=== PATIENT | female | born 1990 | race African-American/Black ===

== ENCOUNTER 2016-09-17 16:26 | Outpatient (CLI) | payer OTHER, MEDICAID ==
[~2016-09-17] VITALS: Ht 162.6 cm; Wt 94.5 kg
[~2016-09-17 16:26] MED LIST: ABILIFY5 MG PO; ALBUTEROL0.09 MG/A1 IH; ATIVAN; CIPRO 500MG TA500 MG PO; FLEXERIL; GENTAMICIN EYE D5 ML OP; K-DUR20 MEQ PO; LORTAB 5/500 501 TAB PO; PEPCID 20MG TAB20 MG PO; PHENERGAN 25 TA25 MG PO; PROZAC 10MG10 MG PO; ROZEREM 8MG TABL8 MG PO; TRAZODONE150 MG PO; VENTOLIN0.09 MG IH; ZITHROMAX Z PA250 MG PO; ZOFRAN 4MG T4 MG/TAB PO; [UNRECOGNIZED DRUG - OTHER]
[2016-09-17 16:45] VITALS: BP 119/67; PULSE 86; TEMP 98.1
[2016-09-17] MEDS ORDERED: PRENATAL1 TA7 PO (16:54)
[2016-09-17 17:30] VITALS: BP 119/72; PULSE 85
== END 2016-09-17 17:50 | disposition home or self-care (01) ==
LOC: LDRO 16:26
DX: Z03.79 Encounter for other suspected maternal and fetal conditions ruled out (principal); Z3A.39 39 weeks gestation of pregnancy; W18.30XA Fall on same level, unspecified, initial encounter; F17.210 Nicotine dependence, cigarettes, uncomplicated

== ENCOUNTER 2017-09-21 10:31 | Emergency (ER) | payer SELFPAY ==
[~2017-09-21] VITALS: Ht 162.6 cm; Wt 87.5 kg
[~2017-09-21 10:31] MED LIST changes: +PRENATAL1 TA7 PO
[2017-09-21 10:54] VITALS: BP 137/90; TEMP 98.4
[2017-09-21 11:16] LABS: COLLECTION METHOD CLEAN CATCH
[2017-09-21 11:31] LABS: MUCOUS Present /lpf; PH 6 (5-8); URINE APPEARANCE Clear; URINE BACTERIA None Seen /hpf; URINE BILIRUBIN Negative (NEGATIVE); URINE BLOOD Negative (NEGATIVE); URINE COLOR Yellow; URINE GLUCOSE Negative (NEGATIVE); URINE KETONE Negative (NEGATIVE); URINE LEUKOCYTE ESTERASE Negative (NEGATIVE); URINE NITRATE Negative (NEGATIVE); URINE PROTEIN(semi-quant) 1+ (NEGATIVE)
[2017-09-21 11:39] LABS: BASO % 0.2 % (0.0-2.0); EOS # 0.1 (0.0-0.7); EOS % 1.2 % (0-4.0); GRAN # 7.2 (1.4-6.5); GRAN % 69.3 % (42.2-75.2); HEMATOCRIT 37.8 % (37.0-47.0); HEMOGLOBIN 12.5 g/dl (12.5-16.0); LYMPH # 2.4 (1.2-3.4); LYMPH % 23.3 % (20.0-51.0); MEAN CELL VOLUME 87 fl (80.0-100.0); MEAN CORPUSCULAR HEMOGLOBIN 29 pg (27.0-31.0); MEAN CORPUSCULAR HGB CONC 33 g/dl (33.0-37.0); MEAN PLATELET VOLUME 9.1 fl (7.4-10.4); MONO # 0.6 (0.1-0.6); MONO % 5.7 % (1.7-9.3); PLATELET COUNT 348 K/mm3 (130-400); RED BLOOD COUNT 4.36 M/mm3 (4.10-5.30); REDCELL DISTRIBUTION WIDTH-CV 15.5 % (11.5-14.5)
[2017-09-21 11:43] LABS: ALANINE AMINOTRANSFERASE 31 U/L (9-52); ALBUMIN 3.9 gm/dL (3.5-5.0); ALKALINE PHOSPHATASE 95 U/L (50-136); ANION GAP 10 mmol/L (7-16); AST,SGOT 26 U/L (15-37); BILIRUBIN,TOTAL 0.5 mg/dL (0.0-1.0); BLOOD UREA NITROGEN 10 mg/dL (7-17); CALCIUM 9.8 mg/dL (8.4-10.2); CARBON DIOXIDE 26 mmol/L (22-30); CHLORIDE 105 mmol/L (98-107); CREATININE, serum 0.81 mg/dL (0.52-1.25); GLUCOSE 109 mg/dL (74-106); POTASSIUM 4.1 mmol/L (3.4-5.0); SODIUM 141 mmol/L (137-145); TOTAL PROTEIN 8.3 gm/dL (6.4-8.2)
[2017-09-21 12:00] LABS: HCG,QUANTITATIVE < 2 mIU/mL (0-5)
[2017-09-21 13:05] VITALS: PULSE 77
== END 2017-09-21 13:05 | disposition home or self-care (01) ==
LOC: COL.ER 10:31
PROVIDERS: Emergency Medicine
DX: R10.2 Pelvic and perineal pain (principal)
CPT/HCPCS: J0696

== ENCOUNTER 2018-01-23 09:50 | Emergency (ER) | payer SELFPAY ==
[~2018-01-23] VITALS: Ht 162.6 cm; Wt 81.8 kg
[2018-01-23 09:57] VITALS: TEMP 97.8
[2018-01-23 10:26] LABS: BASO % 0.2 % (0.0-2.0); EOS % 0.2 % (0-4.0); GRAN # 9.2 (1.4-6.5); GRAN % 74.9 % (42.2-75.2); HEMATOCRIT 41.5 % (37.0-47.0); LYMPH # 2.4 (1.2-3.4); LYMPH % 19.5 % (20.0-51.0); MEAN CELL VOLUME 85 fl (80.0-100.0); MEAN CORPUSCULAR HEMOGLOBIN 29 pg (27.0-31.0); MEAN CORPUSCULAR HGB CONC 34 g/dl (33.0-37.0); MEAN PLATELET VOLUME 9.2 fl (7.4-10.4); MONO # 0.6 (0.1-0.6); MONO % 4.9 % (1.7-9.3); PLATELET COUNT 330 K/mm3 (130-400); RED BLOOD COUNT 4.89 M/mm3 (4.10-5.30); REDCELL DISTRIBUTION WIDTH-CV 14.9 % (11.5-14.5)
[2018-01-23 10:38] LABS: COLLECTION METHOD CLEAN CATCH
[2018-01-23 10:38] LABS: BILIRUBIN,TOTAL 1.4 mg/dL (0.0-1.0); C-REACTIVE PROTEIN 0.7 mg/dL (0.0-0.9); CREATININE, serum 0.78 mg/dL (0.52-1.25); POTASSIUM 3.4 mmol/L (3.4-5.0); TOTAL PROTEIN 7.5 gm/dL (6.4-8.2)
[2018-01-23 11:11] LABS: AMORPHOUS CRYSTAL Present /uL; MUCOUS Present /lpf; PH 7 (5-8); SQUAMOUS EPITHELIAL None Seen /hpf; URINE APPEARANCE Cloudy; URINE BACTERIA None Seen /hpf; URINE BILIRUBIN Negative (NEGATIVE); URINE BLOOD Negative (NEGATIVE); URINE COLOR Yellow; URINE GLUCOSE Negative (NEGATIVE); URINE KETONE 2+ (NEGATIVE); URINE LEUKOCYTE ESTERASE Negative (NEGATIVE); URINE NITRATE Negative (NEGATIVE); URINE PROTEIN(semi-quant) 1+ (NEGATIVE); URINE UROBILINOGEN >=4.0 mg/dL (NEGATIVE)
[2018-01-23] MEDS ORDERED: NORCO 325 MG-51 TAB PO (13:15)
[2018-01-23] MEDS ORDERED: ZOFRAN ODT4 MG PO (13:15)
[2018-01-23 13:37] VITALS: BP 120/88; PULSE 74
== END 2018-01-23 13:38 | disposition home or self-care (01) ==
LOC: COL.ER 09:50
PROVIDERS: Nurse Practitioner
DX: R10.13 Epigastric pain (principal); F17.210 Nicotine dependence, cigarettes, uncomplicated; F12.90 Cannabis use, unspecified, uncomplicated
CPT/HCPCS: J2270; J2405; J7030; Q9967

== ENCOUNTER 2018-01-31 02:48 | Emergency (ER) | payer SELFPAY ==
[~2018-01-31] VITALS: Ht 162.6 cm; Wt 77.3 kg
[~2018-01-31 02:48] MED LIST changes: +NORCO 325 MG-51 TAB PO; +ZOFRAN ODT4 MG PO
[2018-01-31 02:52] VITALS: BP 136/91; TEMP 98.6
[2018-01-31] MEDS ORDERED: CEPHALEXIN500 M1 PO (05:19)
[2018-01-31 05:37] VITALS: PULSE 87
== END 2018-01-31 05:37 | disposition home or self-care (01) ==
LOC: COL.ER 02:48
DX: S61.210A Laceration without foreign body of right index finger without damage to nail, initial encounter (principal); Z23 Encounter for immunization; W26.8XXA Contact with other sharp object(s), not elsewhere classified, initial encounter; Y92.410 Unspecified street and highway as the place of occurrence of the external cause

== ENCOUNTER 2018-05-04 14:41 | Emergency (ER) | payer SELFPAY ==
[~2018-05-04] VITALS: Ht 162.6 cm; Wt 68.2 kg
[~2018-05-04 14:41] MED LIST changes: +CEPHALEXIN500 M1 PO
[2018-05-04 14:49] VITALS: BP 138/92; TEMP 98.2
[2018-05-04 16:08] LABS: COLLECTION METHOD CLEAN CATCH
[2018-05-04 16:17] LABS: MUCOUS Present /lpf; PH 6 (5-8); URINE APPEARANCE Clear; URINE BACTERIA None Seen /hpf; URINE BILIRUBIN Negative (NEGATIVE); URINE BLOOD 3+ (NEGATIVE); URINE COLOR Yellow; URINE GLUCOSE Negative (NEGATIVE); URINE KETONE 2+ (NEGATIVE); URINE LEUKOCYTE ESTERASE Negative (NEGATIVE); URINE NITRATE Negative (NEGATIVE); URINE PROTEIN(semi-quant) 2+ (NEGATIVE)
[2018-05-04 16:49] LABS: BASO % 0.2 % (0.0-2.0); EOS % 0.2 % (0-4.0); GRAN # 8.7 (1.4-6.5); GRAN % 79.8 % (42.2-75.2); HEMATOCRIT 41.7 % (37.0-47.0); HEMOGLOBIN 14.1 g/dl (12.5-16.0); LYMPH # 1.4 (1.2-3.4); LYMPH % 13.1 % (20.0-51.0); MEAN CELL VOLUME 86 fl (80.0-100.0); MEAN CORPUSCULAR HEMOGLOBIN 29 pg (27.0-31.0); MEAN CORPUSCULAR HGB CONC 34 g/dl (33.0-37.0); MONO # 0.7 (0.1-0.6); MONO % 6.4 % (1.7-9.3); PLATELET COUNT 337 K/mm3 (130-400); RED BLOOD COUNT 4.86 M/mm3 (4.10-5.30); REDCELL DISTRIBUTION WIDTH-CV 15.3 % (11.5-14.5)
[2018-05-04 16:53] LABS: ALANINE AMINOTRANSFERASE 16 U/L (9-52); ALBUMIN 4.4 gm/dL (3.5-5.0); ALKALINE PHOSPHATASE 73 U/L (50-136); ANION GAP 8 mmol/L (7-16); AST,SGOT 33 U/L (15-37); BILIRUBIN,TOTAL 0.8 mg/dL (0.0-1.0); BLOOD UREA NITROGEN 10 mg/dL (7-17); CALCIUM 9.5 mg/dL (8.4-10.2); CARBON DIOXIDE 31 mmol/L (22-30); CHLORIDE 99 mmol/L (98-107); GLUCOSE 96 mg/dL (74-106); POTASSIUM 3.3 mmol/L (3.4-5.0); SODIUM 138 mmol/L (137-145); TOTAL PROTEIN 8.1 gm/dL (6.4-8.2)
[2018-05-04 17:14] LABS: C-REACTIVE PROTEIN < 0.5 mg/dL (0.0-0.9); LIPASE 41 U/L (23-300)
[2018-05-04] MEDS ORDERED: ZOFRAN ODT4 MG PO (17:25)
[2018-05-04 18:15] VITALS: PULSE 80
== END 2018-05-04 18:15 | disposition home or self-care (01) ==
LOC: COL.ER 14:41
PROVIDERS: Physician Assistant
DX: R11.10 Vomiting, unspecified (principal)
CPT/HCPCS: J2405; J7030

== ENCOUNTER 2018-10-07 17:25 | Emergency (ER) | payer SELFPAY ==
[~2018-10-07] VITALS: Ht 162.6 cm; Wt 59.1 kg
[2018-10-07 17:29] VITALS: BP 157/108; TEMP 97.4
[2018-10-07 17:57] LABS: COLLECTION METHOD CLEAN CATCH
[2018-10-07 18:10] LABS: MUCOUS Present /lpf; PH 7 (5-8); SQUAMOUS EPITHELIAL 0-2 /hpf; URINE APPEARANCE Hazy; URINE BACTERIA None Seen /hpf; URINE BILIRUBIN Negative (NEGATIVE); URINE BLOOD Negative (NEGATIVE); URINE COLOR Yellow; URINE GLUCOSE Negative (NEGATIVE); URINE KETONE Negative (NEGATIVE); URINE LEUKOCYTE ESTERASE Negative (NEGATIVE); URINE NITRATE Negative (NEGATIVE); URINE PROTEIN(semi-quant) Negative (NEGATIVE); URINE RBC 0-2 /hpf; URINE UROBILINOGEN Negative (NEGATIVE)
[2018-10-07 19:39] LABS: BASO % 0.2 % (0.0-2.0); EOS # 0.1 (0.0-0.7); EOS % 0.7 % (0-4.0); GRAN # 6.4 (1.4-6.5); GRAN % 63.2 % (42.2-75.2); HEMATOCRIT 42.8 % (37.0-47.0); HEMOGLOBIN 14.1 g/dl (12.5-16.0); LYMPH # 2.9 (1.2-3.4); LYMPH % 29.2 % (20.0-51.0); MEAN CELL VOLUME 88 fl (80.0-100.0); MEAN CORPUSCULAR HEMOGLOBIN 29 pg (27.0-31.0); MEAN CORPUSCULAR HGB CONC 33 g/dl (33.0-37.0); MEAN PLATELET VOLUME 9.8 fl (7.4-10.4); MONO # 0.7 (0.1-0.6); MONO % 6.5 % (1.7-9.3); PLATELET COUNT 351 K/mm3 (130-400); RED BLOOD COUNT 4.85 M/mm3 (4.10-5.30); REDCELL DISTRIBUTION WIDTH-CV 13.8 % (11.5-14.5)
[2018-10-07 19:43] LABS: ALBUMIN 4.2 gm/dL (3.5-5.0); BILIRUBIN,TOTAL 0.8 mg/dL (0.0-1.0); CALCIUM 9.8 mg/dL (8.4-10.2); CREATININE, serum 0.89 (0.52-1.25); POTASSIUM 4.3 mmol/L (3.4-5.0); TOTAL PROTEIN 8.2 gm/dL (6.4-8.2)
[2018-10-07] MEDS ORDERED: PHENERGAN 25 TA25 MG PO (20:07)
[2018-10-07] MEDS ORDERED: NEXIUM 20MG20 MG PO (20:07)
[2018-10-07 22:41] VITALS: PULSE 98
== END 2018-10-07 20:40 | disposition home or self-care (01) ==
LOC: COL.ER 17:25
PROVIDERS: Emergency Medicine
DX: K27.9 Peptic ulcer, site unspecified, unspecified as acute or chronic, without hemorrhage or perforation (principal)
CPT/HCPCS: C9113; J0780; J7030

== ENCOUNTER 2018-10-16 15:55 | Emergency (ER) | payer SELFPAY ==
[~2018-10-16] VITALS: Ht 162.6 cm; Wt 68.2 kg
[~2018-10-16 15:55] MED LIST changes: +NEXIUM 20MG20 MG PO
[2018-10-16 16:05] VITALS: BP 144/100; TEMP 97
[2018-10-16 17:05] LABS: BASO % 0.2 % (0.0-2.0); EOS # 0.1 (0.0-0.7); GRAN # 6.3 (1.4-6.5); HEMATOCRIT 37.2 % (37.0-47.0); HEMOGLOBIN 12.2 g/dl (12.5-16.0); LYMPH # 2.7 (1.2-3.4); LYMPH % 27.8 % (20.0-51.0); MEAN CELL VOLUME 89 fl (80.0-100.0); MEAN CORPUSCULAR HEMOGLOBIN 29 pg (27.0-31.0); MEAN CORPUSCULAR HGB CONC 33 g/dl (33.0-37.0); MEAN PLATELET VOLUME 9.2 fl (7.4-10.4); MONO # 0.6 (0.1-0.6); MONO % 5.8 % (1.7-9.3); PLATELET COUNT 317 K/mm3 (130-400); RED BLOOD COUNT 4.17 M/mm3 (4.10-5.30); REDCELL DISTRIBUTION WIDTH-CV 14.3 % (11.5-14.5)
[2018-10-16 17:18] LABS: ALANINE AMINOTRANSFERASE 12 U/L (9-52); ALKALINE PHOSPHATASE 69 U/L (50-136); ANION GAP 9 mmol/L (7-16); AST,SGOT 23 U/L (15-37); BILIRUBIN,TOTAL 0.5 mg/dL (0.0-1.0); BLOOD UREA NITROGEN 9 mg/dL (7-17); CALCIUM 9.4 mg/dL (8.4-10.2); CARBON DIOXIDE 27 mmol/L (22-30); CHLORIDE 101 mmol/L (98-107); CREATININE, serum 0.77 (0.52-1.25); GLUCOSE 89 mg/dL (74-106); LIPASE 73 U/L (23-300); POTASSIUM 3.7 mmol/L (3.4-5.0); SODIUM 137 mmol/L (137-145); TOTAL PROTEIN 7.6 gm/dL (6.4-8.2)
[2018-10-16 17:21] LABS: C-REACTIVE PROTEIN < 0.5 mg/dL (0.0-0.9)
[2018-10-16] MEDS ORDERED: PROTONIX 40MG T40 MG PO (18:18)
[2018-10-16] MEDS ORDERED: ZOFRAN ODT4 MG PO (18:18)
[2018-10-16] MEDS ORDERED: ATIVAN 0.50.5 MG/TAB PO (18:18)
[2018-10-16 18:59] VITALS: PULSE 93
== END 2018-10-16 19:00 | disposition home or self-care (01) ==
LOC: COL.ER 15:55
PROVIDERS: Emergency Medicine
DX: R10.13 Epigastric pain (principal); F41.9 Anxiety disorder, unspecified; F17.210 Nicotine dependence, cigarettes, uncomplicated
CPT/HCPCS: C9113; J1885; J2060; J2405; J7030

== ENCOUNTER 2018-10-25 01:03 | Emergency (ER) | payer SELFPAY ==
[~2018-10-25] VITALS: Ht 162.6 cm; Wt 68.2 kg
[~2018-10-25 01:03] MED LIST changes: +ATIVAN 0.50.5 MG/TAB PO; +PROTONIX 40MG T40 MG PO
[2018-10-25 01:06] VITALS: TEMP 98.1
[2018-10-25 01:39] LABS: BASO % 0.3 % (0.0-2.0); EOS # 0.1 (0.0-0.7); EOS % 1.3 % (0-4.0); GRAN # 6.1 (1.4-6.5); GRAN % 60.9 % (42.2-75.2); HEMATOCRIT 38.1 % (37.0-47.0); HEMOGLOBIN 12.5 g/dl (12.5-16.0); LYMPH # 3.1 (1.2-3.4); MEAN CELL VOLUME 89 fl (80.0-100.0); MEAN CORPUSCULAR HEMOGLOBIN 29 pg (27.0-31.0); MEAN CORPUSCULAR HGB CONC 33 g/dl (33.0-37.0); MEAN PLATELET VOLUME 8.6 fl (7.4-10.4); MONO # 0.6 (0.1-0.6); MONO % 6.3 % (1.7-9.3); PLATELET COUNT 357 K/mm3 (130-400); RED BLOOD COUNT 4.28 M/mm3 (4.10-5.30); REDCELL DISTRIBUTION WIDTH-CV 14.3 % (11.5-14.5)
[2018-10-25 01:52] LABS: ALANINE AMINOTRANSFERASE 15 U/L (9-52); ALKALINE PHOSPHATASE 81 U/L (50-136); ANION GAP 10 mmol/L (7-16); AST,SGOT 20 U/L (15-37); BILIRUBIN,TOTAL 1.2 mg/dL (0.0-1.0); BLOOD UREA NITROGEN 6 mg/dL (7-17); CALCIUM 9.5 mg/dL (8.4-10.2); CARBON DIOXIDE 26 mmol/L (22-30); CHLORIDE 103 mmol/L (98-107); GLUCOSE 93 mg/dL (74-106); LIPASE 188 U/L (23-300); POTASSIUM 3.7 mmol/L (3.4-5.0); SODIUM 139 mmol/L (137-145); TOTAL PROTEIN 7.6 gm/dL (6.4-8.2)
[2018-10-25 01:53] LABS: C-REACTIVE PROTEIN < 0.5 mg/dL (0.0-0.9)
[2018-10-25] MEDS ORDERED: PHENERGAN 25 TA25 MG PO (04:19)
[2018-10-25] MEDS ORDERED: PREVACID 30MG30 M1 PO (06:10)
[2018-10-25] MEDS ORDERED: BIAXIN 500MG T500 MG PO (06:10)
[2018-10-25] MEDS ORDERED: AMOXICILLIN 50500 MG PO (06:10)
[2018-10-25 06:26] VITALS: BP 137/103; PULSE 85
== END 2018-10-25 08:00 | disposition home or self-care (01) ==
LOC: COL.ER 01:03
PROVIDERS: Nurse Practitioner
DX: S60.551A Superficial foreign body of right hand, initial encounter (principal); R10.13 Epigastric pain; F31.9 Bipolar disorder, unspecified; F12.90 Cannabis use, unspecified, uncomplicated; F17.210 Nicotine dependence, cigarettes, uncomplicated; K27.9 Peptic ulcer, site unspecified, unspecified as acute or chronic, without hemorrhage or perforation; Z23 Encounter for immunization; X58.XXXA Exposure to other specified factors, initial encounter
CPT/HCPCS: J2060; J2270; J2405; J7030; Q9967

== ENCOUNTER 2019-04-13 18:48 | Emergency (ER) | payer SELFPAY ==
[~2019-04-13] VITALS: Ht 162.6 cm; Wt 59.1 kg
[~2019-04-13 18:48] MED LIST changes: +AMOXICILLIN 50500 MG PO; +BIAXIN 500MG T500 MG PO; +PREVACID 30MG30 M1 PO
[2019-04-13 18:50] VITALS: TEMP 97.2
[2019-04-13 19:29] LABS: BASO % 0.3 % (0.0-2.0); EOS # 0.1 (0.0-0.7); EOS % 0.6 % (0-4.0); GRAN # 8.1 (1.4-6.5); GRAN % 76.3 % (42.2-75.2); HEMOGLOBIN 11.8 g/dl (12.5-16.0); LYMPH % 18.9 % (20.0-51.0); MEAN CELL VOLUME 86 fl (80.0-100.0); MEAN CORPUSCULAR HEMOGLOBIN 28 pg (27.0-31.0); MEAN CORPUSCULAR HGB CONC 32 g/dl (33.0-37.0); MEAN PLATELET VOLUME 8.8 fl (7.4-10.4); MONO # 0.4 (0.1-0.6); MONO % 3.6 % (1.7-9.3); PLATELET COUNT 472 K/mm3 (130-400); RED BLOOD COUNT 4.25 M/mm3 (4.10-5.30); REDCELL DISTRIBUTION WIDTH-CV 15.1 % (11.5-14.5)
[2019-04-13 19:36] LABS: HEMATOCRIT 36.4 % (37.0-47.0)
[2019-04-13 19:46] LABS: ALANINE AMINOTRANSFERASE 15 U/L (9-52); ALBUMIN 3.9 gm/dL (3.5-5.0); ALKALINE PHOSPHATASE 78 U/L (50-136); ANION GAP 6 mmol/L (7-16); AST,SGOT 23 U/L (15-37); BILIRUBIN,TOTAL 0.3 mg/dL (0.0-1.0); BLOOD UREA NITROGEN 15 mg/dL (7-17); CALCIUM 9.1 mg/dL (8.4-10.2); CARBON DIOXIDE 29 mmol/L (22-30); CHLORIDE 100 mmol/L (98-107); CREATININE, serum 0.89 (0.52-1.25); GLUCOSE 102 mg/dL (74-106); POTASSIUM 3.8 mmol/L (3.4-5.0); SODIUM 135 mmol/L (137-145); TOTAL PROTEIN 7.6 gm/dL (6.4-8.2)
[2019-04-13 19:49] LABS: C-REACTIVE PROTEIN < 0.5 mg/dL (0.0-0.9)
[2019-04-13 21:59] VITALS: BP 139/100; PULSE 88
== END 2019-04-13 21:59 | disposition home or self-care (01) ==
LOC: COL.ER 18:48
PROVIDERS: Family Medicine
DX: E86.9 Volume depletion, unspecified (principal); E86.0 Dehydration; F15.93 Other stimulant use, unspecified with withdrawal
CPT/HCPCS: J2550; J7030; J7120

== ENCOUNTER 2019-04-17 00:11 | Emergency (ER) | payer SELFPAY ==
[~2019-04-17] VITALS: Ht 162.6 cm; Wt 59.1 kg
[2019-04-17 00:38] LABS: COLLECTION METHOD CLEAN CATCH
[2019-04-17 00:46] LABS: MUCOUS Present /lpf; PH 6 (5-8); SQUAMOUS EPITHELIAL 0-2 /hpf; URINE APPEARANCE Clear; URINE BACTERIA Many /hpf; URINE BILIRUBIN Negative (NEGATIVE); URINE BLOOD 1+ (NEGATIVE); URINE COLOR Yellow; URINE GLUCOSE Negative (NEGATIVE); URINE KETONE Negative (NEGATIVE); URINE LEUKOCYTE ESTERASE Negative (NEGATIVE); URINE NITRATE Positive (NEGATIVE); URINE PROTEIN(semi-quant) Negative (NEGATIVE); URINE RBC None Seen /hpf; URINE UROBILINOGEN Negative (NEGATIVE)
[2019-04-17 00:57] LABS: BASO % 0.4 % (0.0-2.0); EOS % 0.2 % (0-4.0); GRAN # 5.9 (1.4-6.5); HEMATOCRIT 39.2 % (37.0-47.0); HEMOGLOBIN 12.9 g/dl (12.5-16.0); LYMPH # 2.5 (1.2-3.4); LYMPH % 27.7 % (20.0-51.0); MEAN CELL VOLUME 84 fl (80.0-100.0); MEAN CORPUSCULAR HEMOGLOBIN 28 pg (27.0-31.0); MEAN CORPUSCULAR HGB CONC 33 g/dl (33.0-37.0); MEAN PLATELET VOLUME 8.8 fl (7.4-10.4); MONO # 0.6 (0.1-0.6); MONO % 6.5 % (1.7-9.3); PLATELET COUNT 436 K/mm3 (130-400); RED BLOOD COUNT 4.66 M/mm3 (4.10-5.30); REDCELL DISTRIBUTION WIDTH-CV 15.1 % (11.5-14.5)
[2019-04-17 01:09] LABS: ALANINE AMINOTRANSFERASE 11 U/L (9-52); ALBUMIN 4.3 gm/dL (3.5-5.0); ALKALINE PHOSPHATASE 87 U/L (50-136); ANION GAP 11 mmol/L (7-16); AST,SGOT 16 U/L (15-37); BILIRUBIN,TOTAL 0.8 mg/dL (0.0-1.0); BLOOD UREA NITROGEN 12 mg/dL (7-17); CALCIUM 9.3 mg/dL (8.4-10.2); CARBON DIOXIDE 25 mmol/L (22-30); CHLORIDE 98 mmol/L (98-107); CREATININE, serum 0.94 (0.52-1.25); GLUCOSE 105 mg/dL (74-106); SODIUM 135 mmol/L (137-145); TOTAL PROTEIN 8.5 gm/dL (6.4-8.2)
[2019-04-17 01:10] LABS: C-REACTIVE PROTEIN < 0.5 mg/dL (0.0-0.9)
[2019-04-17 02:30] VITALS: BP 136/89; PULSE 88; TEMP 98.1
== END 2019-04-17 02:30 | disposition home or self-care (01) ==
LOC: COL.ER 00:11
PROVIDERS: Nurse Practitioner
DX: R10.9 Unspecified abdominal pain (principal); F17.210 Nicotine dependence, cigarettes, uncomplicated
CPT/HCPCS: J2550; J3010; J7030

== ENCOUNTER 2019-04-20 11:10 | Emergency (ER) | payer SELFPAY ==
[~2019-04-20] VITALS: Ht 162.6 cm; Wt 59.1 kg
[2019-04-20 11:16] VITALS: BP 131/91; TEMP 97.9
[2019-04-20 12:29] LABS: COLLECTION METHOD CLEAN CATCH
[2019-04-20 12:39] LABS: MUCOUS Present /lpf; PH 6 (5-8); SQUAMOUS EPITHELIAL 0-2 /hpf; URINE APPEARANCE Hazy; URINE BACTERIA Many /hpf; URINE BILIRUBIN Negative (NEGATIVE); URINE BLOOD Negative (NEGATIVE); URINE COLOR Yellow; URINE GLUCOSE Negative (NEGATIVE); URINE KETONE Negative (NEGATIVE); URINE LEUKOCYTE ESTERASE Negative (NEGATIVE); URINE NITRATE Negative (NEGATIVE); URINE PROTEIN(semi-quant) Negative (NEGATIVE); URINE RBC 0-2 /hpf; URINE UROBILINOGEN Negative (NEGATIVE)
[2019-04-20 12:40] LABS: BASO % 0.4 % (0.0-2.0); EOS # 0.1 (0.0-0.7); EOS % 0.7 % (0-4.0); GRAN % 59.6 % (42.2-75.2); HEMATOCRIT 38.3 % (37.0-47.0); HEMOGLOBIN 12.5 g/dl (12.5-16.0); LYMPH # 2.2 (1.2-3.4); LYMPH % 32.2 % (20.0-51.0); MEAN CELL VOLUME 87 fl (80.0-100.0); MEAN CORPUSCULAR HEMOGLOBIN 28 pg (27.0-31.0); MEAN CORPUSCULAR HGB CONC 33 g/dl (33.0-37.0); MEAN PLATELET VOLUME 9.5 fl (7.4-10.4); MONO # 0.5 (0.1-0.6); PLATELET COUNT 368 K/mm3 (130-400); RED BLOOD COUNT 4.42 M/mm3 (4.10-5.30)
[2019-04-20 12:43] LABS: BILIRUBIN,TOTAL 1.1 mg/dL (0.0-1.0); CREATININE, serum 0.78 (0.52-1.25); POTASSIUM 4.2 mmol/L (3.4-5.0); TOTAL PROTEIN 7.8 gm/dL (6.4-8.2)
[2019-04-20] MEDS ORDERED: PRIL40 PO (14:36)
[2019-04-20] MEDS ORDERED: CARAFATE S1 GM/10 ML PO (14:36)
[2019-04-20 14:44] VITALS: PULSE 92
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
== END 2019-04-20 14:46 | disposition home or self-care (01) ==
LOC: COL.ER 11:10
PROVIDERS: Physician Assistant
DX: K27.9 Peptic ulcer, site unspecified, unspecified as acute or chronic, without hemorrhage or perforation (principal); F17.210 Nicotine dependence, cigarettes, uncomplicated
CPT/HCPCS: C9113; J2405; J7030

== ENCOUNTER 2019-08-01 12:52 | Emergency (ER) | payer SELFPAY ==
[~2019-08-01] VITALS: Ht 162.6 cm; Wt 59.1 kg
[~2019-08-01 12:52] MED LIST changes: +CARAFATE S1 GM/10 ML PO; +PRIL40 PO
[2019-08-01 13:52] LABS: STREP SCREEN NEGATIVE
[2019-08-01 14:10] VITALS: BP 133/90; PULSE 83; TEMP 97.4
== END 2019-08-01 14:10 | disposition home or self-care (01) ==
LOC: COL.ER 12:52
PROVIDERS: Physician Assistant
DX: B34.9 Viral infection, unspecified (principal); F31.9 Bipolar disorder, unspecified; F17.210 Nicotine dependence, cigarettes, uncomplicated

== ENCOUNTER 2019-08-02 19:55 | Emergency (ER) | payer SELFPAY | END 2019-08-02 20:15 | disposition left against medical advice (07) | LOC: COL.ER 19:55 | DX: Z72.89 Other problems related to lifestyle (principal) ==

== ENCOUNTER 2020-11-17 06:58 | Emergency (ER) | payer MEDICAID ==
[~2020-11-17] VITALS: Ht 162.6 cm; Wt 54.5 kg
[2020-11-17 07:13] VITALS: TEMP 97.8
[2020-11-17] MEDS ORDERED: PRILOTC PO (07:13)
[2020-11-17 07:36] LABS: COLLECTION METHOD CLEAN CATCH
[2020-11-17 07:40] LABS: BASO % 0.1 % (0.0-2.0); EOS # 0.1 (0.0-0.7); EOS % 0.9 % (0-4.0); GRAN # 5.5 (1.4-6.5); GRAN % 70.5 % (42.2-75.2); HEMOGLOBIN 10.6 g/dl (12.5-16.0); LYMPH # 1.7 (1.2-3.4); LYMPH % 21.5 % (20.0-51.0); MEAN CELL VOLUME 82 fl (80.0-100.0); MEAN CORPUSCULAR HEMOGLOBIN 26 pg (27.0-31.0); MEAN CORPUSCULAR HGB CONC 31 g/dl (33.0-37.0); MEAN PLATELET VOLUME 8.7 fl (7.4-10.4); MONO # 0.5 (0.1-0.6); MONO % 6.7 % (1.7-9.3); PLATELET COUNT 334 K/mm3 (130-400); RED BLOOD COUNT 4.12 M/mm3 (4.10-5.30)
[2020-11-17 07:44] LABS: HEMATOCRIT 33.9 % (37.0-47.0)
[2020-11-17 07:55] LABS: ALANINE AMINOTRANSFERASE 16 U/L (4-34); ALBUMIN 3.9 gm/dL (3.5-5.0); ALKALINE PHOSPHATASE 80 U/L (50-136); ANION GAP 7 mmol/L (7-16); AST,SGOT 26 U/L (15-37); BLOOD UREA NITROGEN 4 mg/dL (7-17); CALCIUM 9.6 mg/dL (8.4-10.2); CARBON DIOXIDE 25 mmol/L (22-30); CHLORIDE 100 mmol/L (98-107); CREATININE, serum 0.69 (0.52-1.25); GLUCOSE 93 mg/dL (74-106); LIPASE 57 U/L (23-300); POTASSIUM 3.5 mmol/L (3.4-5.0); SODIUM 132 mmol/L (137-145); TOTAL PROTEIN 7.7 gm/dL (6.4-8.2)
[2020-11-17 07:59] LABS: AMORPHOUS CRYSTAL Present /uL; MUCOUS Present /lpf; PH 8 (5-8); SQUAMOUS EPITHELIAL 0-2 /hpf; URINE APPEARANCE Cloudy; URINE BACTERIA Many /hpf; URINE BILIRUBIN Negative (NEGATIVE); URINE BLOOD 1+ (NEGATIVE); URINE COLOR Yellow; URINE GLUCOSE Negative (NEGATIVE); URINE KETONE Negative (NEGATIVE); URINE LEUKOCYTE ESTERASE Negative (NEGATIVE); URINE NITRATE Negative (NEGATIVE); URINE PROTEIN(semi-quant) Negative (NEGATIVE); URINE RBC 0-2 /hpf; URINE UROBILINOGEN Negative (NEGATIVE)
[2020-11-17 08:01] LABS: C-REACTIVE PROTEIN < 0.5 mg/dL (0.0-0.9)
[2020-11-17] MEDS ORDERED: PRILOSEC 20MG20 MG PO (10:15)
[2020-11-17 11:01] VITALS: PULSE 94
[2020-11-17 12:19] VITALS: BP 120/82
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
== END 2020-11-17 12:19 | disposition home or self-care (01) ==
LOC: COL.ER 06:58
PROVIDERS: Family Medicine
DX: O21.9 Vomiting of pregnancy, unspecified (principal); O16.9 Unspecified maternal hypertension, unspecified trimester; O26.899 Other specified pregnancy related conditions, unspecified trimester; R10.13 Epigastric pain; F15.10 Other stimulant abuse, uncomplicated; Z3A.00 Weeks of gestation of pregnancy not specified
CPT/HCPCS: C9113; J2405; J7120

== ENCOUNTER 2021-01-17 22:09 | Emergency (ER) | payer MEDICAID ==
[~2021-01-17] VITALS: Ht 165.1 cm; Wt 55.5 kg
[~2021-01-17 22:09] MED LIST changes: +PRILOSEC 20MG20 MG PO; +PRILOTC PO
[2021-01-17 22:34] VITALS: TEMP 97.8
[2021-01-17 23:56] LABS: BASO % 0.2 % (0.0-2.0); EOS # 0.1 (0.0-0.7); EOS % 0.5 % (0-4.0); GRAN # 8.4 (1.4-6.5); GRAN % 80.6 % (42.2-75.2); HEMOGLOBIN 10.5 g/dl (12.5-16.0); LYMPH # 1.3 (1.2-3.4); MEAN CELL VOLUME 83 fl (80.0-100.0); MEAN CORPUSCULAR HEMOGLOBIN 27 pg (27.0-31.0); MEAN CORPUSCULAR HGB CONC 33 g/dl (33.0-37.0); MEAN PLATELET VOLUME 9.3 fl (7.4-10.4); MONO # 0.7 (0.1-0.6); MONO % 6.4 % (1.7-9.3); PLATELET COUNT 275 K/mm3 (130-400); RED BLOOD COUNT 3.86 M/mm3 (4.10-5.30); REDCELL DISTRIBUTION WIDTH-CV 18.3 % (11.5-14.5)
[2021-01-17 23:58] LABS: HEMATOCRIT 31.9 % (37.0-47.0)
[2021-01-18 00:05] LABS: ALBUMIN 3.6 gm/dL (3.5-5.0); BILIRUBIN,TOTAL 0.6 mg/dL (0.0-1.0); CALCIUM 11.5 mg/dL (8.4-10.2); CREATININE, serum 0.7 (0.52-1.25); POTASSIUM 3.7 mmol/L (3.4-5.0); TOTAL PROTEIN 7.5 gm/dL (6.4-8.2)
[2021-01-18] MEDS ORDERED: REGLAN 5MG T5 MG/TAB PO (01:25)
[2021-01-18] MEDS ORDERED: CARAFATE 1GM1 G PO (01:25)
[2021-01-18 01:28] VITALS: BP 145/85; PULSE 88
== END 2021-01-18 01:28 | disposition home or self-care (01) ==
LOC: COL.ER 22:09
PROVIDERS: Emergency Medicine
DX: O26.892 Other specified pregnancy related conditions, second trimester (principal); R10.31 Right lower quadrant pain; R10.32 Left lower quadrant pain; O21.9 Vomiting of pregnancy, unspecified; M54.5 Low back pain; Z3A.15 15 weeks gestation of pregnancy

== ENCOUNTER 2021-04-10 15:42 | Emergency (ER) | payer MEDICAID ==
[~2021-04-10] VITALS: Ht 162.6 cm; Wt 59.1 kg
[~2021-04-10 15:42] MED LIST changes: +CARAFATE 1GM1 G PO; +REGLAN 5MG T5 MG/TAB PO
[2021-04-10 16:02] VITALS: BP 121/86; TEMP 98.2
--- NOTE | 2021-04-10 16:22 | NUR ---
This RN to bedside. EFM placed x2, and tracing well. FHR baseline 140's with moderate variability. Positive for 10x10 accels. ER physician notified.
[2021-04-10 18:18] VITALS: PULSE 113
== END 2021-04-10 18:18 | disposition home or self-care (01) ==
LOC: COL.ER 15:42
DX: O9A.212 Injury, poisoning and certain other consequences of external causes complicating pregnancy, second trimester (principal); M53.3 Sacrococcygeal disorders, not elsewhere classified; O99.612 Diseases of the digestive system complicating pregnancy, second trimester; K21.9 Gastro-esophageal reflux disease without esophagitis; Z3A.27 27 weeks gestation of pregnancy; Z79.899 Other long term (current) drug therapy; W10.9XXA Fall (on) (from) unspecified stairs and steps, initial encounter

== ENCOUNTER 2021-06-06 11:08 | Outpatient (CLI) | payer MEDICAID ==
--- NOTE | 2021-06-06 11:10 | NUR ---
1110- 34.6, G5L4 arrives on unit with c/o contractions that started 3 days ago. Pt reports, "I'm just not feeling very good, and I'm having a lot of upper abdominal pain." To LDR4 via wheelchair. Changes into clean gown. Urine sample obtained. Paient reports normal movement. Denies any LOF or VB. 1116- EFM explained and placed. VS obtained. 1130- SVE /-3. BOWI. Assessment completed. 1142. Dr. Flynn updated on pt. See physician notification. 1200- Labs obtained. GBS collected. 1235- COVID swab collected. 1245- Dr. Flynn updated on pt. See physician notificaion. 1255- IV to left fa. LR bolus infusing. Plan of care reviewed with pt who verbalizes understanding. 1310- Pt COVID test positive. Dr. Flynn at nurses desk and reviews all labs, and updated on pt. Orders to complete LR bolus and discharge home with labor and isolation precautions. 1330- LR bolus complete. IV discontinued. Discharge instructions reviewed and pt verbalizes understanding. Pt escorted off unit by this RN.
[2021-06-06 12:00] VITALS: BP 127/87; PULSE 86; TEMP 98.3
[2021-06-06 12:20] LABS: MEAN CELL VOLUME 80 fl (80.0-100.0); MEAN CORPUSCULAR HGB CONC 32 g/dl (33.0-37.0); MEAN PLATELET VOLUME 9.6 fl (7.4-10.4); PLATELET COUNT 313 K/mm3 (130-400); RED BLOOD COUNT 3.17 M/mm3 (4.10-5.30); REDCELL DISTRIBUTION WIDTH-CV 16.9 % (11.5-14.5)
[2021-06-06] MEDS ORDERED: PRENATA1 CTB PO (12:25)
[2021-06-06 12:29] LABS: HEMATOCRIT 25.4 % (37.0-47.0); HEMOGLOBIN 8.2 g/dl (12.5-16.0); MEAN CORPUSCULAR HEMOGLOBIN 26 pg (27-31)
[2021-06-06 12:35] LABS: ALBUMIN 2.9 gm/dL (3.5-5.0); BILIRUBIN,TOTAL 0.9 mg/dL (0.2-1.2); CALCIUM 9.5 mg/dL (8.4-10.2); CREATININE, serum 0.79 mg/dL (0.57-1.11); POTASSIUM 3.4 mmol/L (3.5-4.5); TOTAL PROTEIN 6.9 gm/dL (6.2-8.1)
[2021-06-06 12:38] LABS: TRICYCLIC ANTIDEPRESS URINE NEGATIVE
[2021-06-06 12:46] LABS: LYMPHOCYTE 18 % (20.0-51.0); NEUTROPHILS 77 % (42.0-75.2)
[2021-06-06 12:47] LABS: ANISOCYTOSIS 1+; PLATELET ESTIMATE NORMAL (NORMAL)
[2021-06-06 13:00] VITALS: BP 145/100; PULSE 82
[2021-06-06 13:45] VITALS: BP 144/96; PULSE 78
== END 2021-06-06 13:45 | disposition home or self-care (01) ==
LOC: LDRO 11:08 → LDR 11:10 → LDRO 13:45
PROVIDERS: Obstetrics & Gynecology
DX: O62.9 Abnormality of forces of labor, unspecified (principal); Z3A.34 34 weeks gestation of pregnancy
CPT/HCPCS: J2405; J7120

== ENCOUNTER 2021-06-19 15:27 | Outpatient (CLI) | payer MEDICAID ==
[~2021-06-19] VITALS: Ht 172.7 cm; Wt 59.1 kg
[~2021-06-19 15:27] MED LIST changes: +PRENATA1 CTB PO
--- NOTE | 2021-06-19 15:44 | NUR ---
CALLS UNIT TO NOTIFY OF PT'S PENDING ARRIVAL. PT ARRIVES AMBULATORY TO UNIT WITH HER MOTHER C/O HIGH BP RELATED TO RECENT COVID DIAGNOSIS. PER VORB ORDERS CBC,CMP,UA, NST, AND VITAL SIGN MONITORING. PT DENIES LEAKING OF FLUID AND REPORTS POSITIVE MOVEMENT. HAS NOT BEEN SEEN AT [facility] OR HAD CARE SINCE 17 WEEKS GESTATION DUE TO NONCOMPLIANCE WITH APPOINTMENTS. SEE PHYS. NOTIFICATION.
[2021-06-19 16:10] VITALS: BP 141/89; PULSE 111; TEMP 98.2
[2021-06-19 16:10] LABS: COLLECTION METHOD CLEAN CATCH
[2021-06-19 16:18] LABS: BASO % 0.3 % (0.0-2.0); EOS # 0.1 K/mm3 (0.0-0.7); EOS % 0.5 % (0.0-4.0); GRAN # 8.1 K/mm3 (1.4-6.5); GRAN % 71.9 % (42.2-75.2); HEMATOCRIT 22.2 % (37.0-47.0); LYMPH # 2.1 K/mm3 (1.2-3.4); LYMPH % 18.4 % (20.0-51.0); MEAN CELL VOLUME 82 fl (80.0-100.0); MEAN CORPUSCULAR HEMOGLOBIN 26 pg (27-31); MEAN CORPUSCULAR HGB CONC 32 g/dl (33.0-37.0); MEAN PLATELET VOLUME 9.2 fl (7.4-10.4); MONO # 0.9 K/mm3 (0.1-0.6); MONO % 7.6 % (1.7-9.3); PLATELET COUNT 317 K/mm3 (130-400); RED BLOOD COUNT 2.71 M/mm3 (4.10-5.30); REDCELL DISTRIBUTION WIDTH-CV 17.8 % (11.5-14.5)
[2021-06-19 16:22] LABS: PH 8 (5-8); URINE APPEARANCE Clear (CLEAR/HAZY); URINE BACTERIA Many /hpf (NONE SEEN); URINE BILIRUBIN Negative (NEGATIVE); URINE BLOOD Negative (NEGATIVE); URINE COLOR Straw (YELLOW); URINE GLUCOSE Negative (NEGATIVE); URINE KETONE Negative (NEGATIVE); URINE LEUKOCYTE ESTERASE 1+ (NEGATIVE); URINE NITRATE Negative (NEGATIVE); URINE PROTEIN(semi-quant) Negative (NEGATIVE); URINE RBC 0-2 /hpf (0-2); URINE UROBILINOGEN Negative (NEGATIVE)
[2021-06-19 16:30] LABS: TRICYCLIC ANTIDEPRESS URINE NEGATIVE
[2021-06-19 16:36] LABS: ALBUMIN 2.6 gm/dL (3.5-5.0); BILIRUBIN,TOTAL 0.5 mg/dL (0.2-1.2); CALCIUM 8.2 mg/dL (8.4-10.2); CREATININE, serum 0.68 mg/dL (0.57-1.11); POTASSIUM 3.8 mmol/L (3.5-4.5); TOTAL PROTEIN 6.5 gm/dL (6.2-8.1)
[2021-06-19 16:40] VITALS: BP 131/85; PULSE 100
--- NOTE | 2021-06-19 16:49 | NUR ---
PT EDUCATED FULLY ON DC PAPERWORK AND INSTRUCTIONS. DISCUSSED IMPORTANCE OF TAKING VITAMIN AND IRON SUPPLEMENT UPON LEAVING TODAY AND TO CALL [facility] TO ATTEMPT TO ESTABLISH CARE AGAIN HER DUE DATE IS APPROACHING SOON. PT AGREEABLE TO PLAN OF CARE AT THIS TIME. BP STABLE THROUGHOUT THIS OUTPATIENT CHECK. SEE PHYS NOTIFICATION.
== END 2021-06-19 16:50 | disposition home or self-care (01) ==
LOC: LDR 15:27 → LDRO 15:27 → LDR 15:35 → LDRO 16:50
PROVIDERS: Obstetrics & Gynecology
DX: Z34.93 Encounter for supervision of normal pregnancy, unspecified, third trimester (principal); Z3A.36 36 weeks gestation of pregnancy; Z86.16 Personal history of COVID-19; F12.90 Cannabis use, unspecified, uncomplicated; F15.90 Other stimulant use, unspecified, uncomplicated; Z86.19 Personal history of other infectious and parasitic diseases

== ENCOUNTER 2021-06-30 21:11 | Outpatient (CLI) | payer MEDICAID ==
[~2021-06-30] VITALS: Ht 162.6 cm; Wt 72.3 kg
[2021-06-30 21:11] VITALS: BP 123/82; PULSE 102; TEMP 98.4
--- NOTE | 2021-06-30 21:15 | NUR ---
2114 G5L4 38.3 WEEKS GEST TO LR3 WITH C/O BAD CONTRACTIONS SINCE 1900 TONIGHT AND POSSIBLE SROM. EFM ON. SVE DONE WITH NEG AMNOITRACE AND NO FLUID NOTED. SVE /BALLOTABLE. STATES IS HAVING FREQUENT CONTRACTIONS AND BACK PAIN. UTERUS PALPATED THROUGH SEVERAL C/O CONTRACTIONS AND UTERUS PALPATES SOFT WITH NO TIGHTENING NOTED AND NO CONTRACTIONS NOTED ON EFM. ADM ASSESSMENT DONE. PT HAS NOT BEEN SEEN IN THE OFFICE SINCE [place] 10 WEEKS GEST BUT HAS BEEN SEEN AT THE HOSPITAL SEVERAL TIMES WITH LABS AND GBS TEST DONE. ADM ASSESSMENT COMPLETED. WATER AND ICE GIVEN. 2144 CONTRACTION NOTED OF EFM.
[2021-06-30 22:15] VITALS: BP 137/89; PULSE 93
--- NOTE | 2021-06-30 22:15 | NUR ---
2215 SVE WITH NO CERVICAL CHANGE. CONTRACTIONS NOTED ON EFM ABOUT EVERY 30 MINUTES. FHT BASELINE 120 WITH ACCELS NOTED. BABY VERY ACTIVE. 2220 DR BARNARD NOTIFIED AND REPORT GIVEN. ORDER TO DISMISS TO HOME 2230 HOME WITH INSTRUCTIONS.
== END 2021-06-30 22:30 | disposition home or self-care (01) ==
LOC: LDRO 21:11
DX: O62.9 Abnormality of forces of labor, unspecified (principal); Z3A.38 38 weeks gestation of pregnancy

== ENCOUNTER 2021-07-05 11:55 | Inpatient (IN) | payer MEDICAID ==
[~2021-07-05] VITALS: Ht 162.6 cm; Wt 76.8 kg
[2021-07-05] VITALS (33 sets, daily range): BP systolic 135–164; BP diastolic 61–105; PULSE 82–102; TEMP 98.1–98.2
--- NOTE | 2021-07-05 11:55 | NUR ---
1155- G5L4, 39.0 arrives on unit from clinic for serial bp and labs. Ambulatatory to LDR4. Reports normal movement. Denies any LOF or VB. Rare ctx. EFM explained and placed. VS obtained. Assessment completed 1235- Dr. Shaw on unit. Reviews strips and bp. Noted to be 160/105. Orders to give labetolol 10mg iv if another severe bp. Orders to admit pt.
[2021-07-05] MEDS ORDERED: TYLENOL 500MG500 MG PO (12:18)
--- NOTE | 2021-07-05 12:50 | NUR ---
1250- IV to left FA. Labs obtained. 1310- Report to Tariq Jimenes RN who assumes care of pt.
[2021-07-05 12:55] LABS: URIC ACID 4.9 mg/dL (2.6-6.0)
[2021-07-05 13:01] LABS: BASO % 0.2 % (0.0-2.0); EOS # 0.1 K/mm3 (0.0-0.7); EOS % 0.5 % (0.0-4.0); GRAN # 7.9 K/mm3 (1.4-6.5); GRAN % 73.5 % (42.2-75.2); LYMPH % 18.1 % (20.0-51.0); MEAN CELL VOLUME 84 fl (80.0-100.0); MEAN CORPUSCULAR HGB CONC 31 g/dl (33.0-37.0); MEAN PLATELET VOLUME 9.7 fl (7.4-10.4); MONO # 0.8 K/mm3 (0.1-0.6); MONO % 7.1 % (1.7-9.3); PLATELET COUNT 268 K/mm3 (130-400); RED BLOOD COUNT 2.69 M/mm3 (4.10-5.30); REDCELL DISTRIBUTION WIDTH-CV 18.2 % (11.5-14.5)
[2021-07-05 13:02] LABS: HEMATOCRIT 22.5 % (37.0-47.0); MEAN CORPUSCULAR HEMOGLOBIN 26 pg (27-31)
[2021-07-05 13:03] LABS: HEMOGLOBIN 6.9 g/dl (12.5-16.0)
[2021-07-05 13:14] LABS: TRICYCLIC ANTIDEPRESS URINE NEGATIVE
--- NOTE | 2021-07-05 16:21 | NUR ---
1315 IVF LR HUNG AT THIS TIME, AND PEN G 5MU STARTED AT THIS TIME PER PROTOCOL.
--- NOTE | 2021-07-05 16:26 | NUR ---
1330 PATIENT VOMITS 200 CC CLEAR EMESIS.
--- NOTE | 2021-07-05 16:27 | NUR ---
1350 LABETALOL 10 MG IV GIVEN PER BOOKER HOLT AT THIS TIME PER DR MELTON ORDERS. DR MELTON AT BEDSIDE TO DISCUSS PLAN OF CARE WITH PATIENT.
--- NOTE | 2021-07-05 16:30 | NUR ---
1430 PATIENT ALLOWED UP TO BATHROOM AT THIS TIME PER DR ORDER.
--- NOTE | 2021-07-05 16:33 | NUR ---
1445 LR AT 50 CC/HR WITH MAG SULFATE 4G BOLUS HUNG AT THIS TIME PER DR NOYOLA ORDERS. SIDE RAILS PADDED AT THIS TIME AND TOXICITY BOX AT BEDSIDE. REFLEXES +2. AT THIS TIME.
--- NOTE | 2021-07-05 16:36 | NUR ---
1500 IV STARTED IN RIGHT WRIST AT THIS TIME. LR AR 25 CC AND PITOCIN AT 2 MU AT THIS TIME PER PROTOCOL. PATIENT TOLERATES WELL. MAGANA PLACED AT THIS TIME. PATIENT DENIES NEEDS AT THIS TIME.
--- NOTE | 2021-07-05 16:39 | NUR ---
1515 MAGNESIUM 2 GRAM OR 50 CC/HR IN LEFT WRIST AND LR AT 50CC/HR. PATIENT RESTS IN LEFT SIDE. DENIES NEEDS
--- NOTE | 2021-07-05 16:41 | NUR ---
1530 PATIENT DENIES NEEDS.
--- NOTE | 2021-07-05 16:45 | NUR ---
1540 REPORT GIVEN TO A JASEN RN TO ASSUME CARE AT THIS TIME
--- NOTE | 2021-07-05 19:20 | NUR ---
FHR signal loss, SVE . PT relaxed, denies pressure.
--- NOTE | 2021-07-05 19:35 | NUR ---
Pt reports pressure. SVE complete.
--- NOTE | 2021-07-05 19:46 | NUR ---
emesis 300cc. Baby while pt throwing up. Perineal support and massage provided. [address] Shaw into room. [address]Pt and mother excited and loving about .
--- NOTE | 2021-07-05 19:54 | NUR ---
Placenta delivers spont and intact with 3 vessell cord. Pitocin gtt to bolus rate. LR to R hand site turned off during bolus.
--- NOTE | 2021-07-05 22:00 | NUR ---
0 Pitocin bolus infused, dc'd, LR to R site dc'd. applejuice given. 0 Mgsulfate to 25cc/hr, LR @50cc/hr. Pt requests "something to eat", tolerated juice without nausea. 2299 Emesis undigested food. Pt states "I guess I shouldn't have eaten yet."
[2021-07-06] VITALS (18 sets, daily range): BP systolic 112–164; BP diastolic 68–710; PULSE 73–109; TEMP 97.4–98.8
--- NOTE | 2021-07-06 06:45 | NUR ---
0645-Assessment of patient complete. Patient reports abdominal cramping rated 4/10 fundal massage firm at umbilicus and lochia WNL. Patient also reports "constant headache" since last night rates 4/10 also. Provided with warm pack for abdomen and PRN pain medication, see EMAR.
[2021-07-06 07:15] LABS: HEMATOCRIT 20.4 % (37.0-47.0)
[2021-07-06 07:17] LABS: HEMOGLOBIN 6.2 g/dl (12.5-16.0)
--- NOTE | 2021-07-06 08:57 | NUR ---
0857-Magnesium infusion turned off per MD orders. 3805-Dr. Marshall on unit. Discusses plan of care with patient.
[2021-07-06] MEDS ORDERED: MOTRIN 800800 MG/TAB PO (09:35)
--- NOTE | 2021-07-06 12:40 | NUR ---
1240-Patient up in room, catheter discontinued. Assisted with matt care and fresh gown change. Ambulated to room 215. Denies needs.
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
[2021-07-07 05:00] VITALS: BP 120/81; PULSE 82; TEMP 98.4
[2021-07-07 08:35] VITALS: BP 143/90; PULSE 83; TEMP 98.3
--- NOTE | 2021-07-07 09:55 | NUR ---
Initial visit; Patient thanked Database Support for offering congratulations and God's blessings for the of her son. Database Support thanked patient for choosing [facility].
[2021-07-07] MEDS ORDERED: PROCARDIA XL 6060 MG PO (11:39)
--- NOTE | 2021-07-07 15:12 | NUR ---
1425DISCHARGE INSTRUCTIONS REVIEWED WITH PATIENT. PATIENT VERBALIZED UNDERSTANDING. PATIENT GOING TO [employer] PRESCRIPTIONS WITH FAMILY AND THEN STATES SHE WILL RETURN WITHIN A FEW HOURS. PATIENT LEFT AMBULATORY AND IN NO APPARENT DISTRESS, ACCOMPANIED BY FAMILY.
== END 2021-07-07 14:25 | disposition home or self-care (01) | DRG 807 ==
LOC: LDRO 11:55 → LDR 11:57 → LDRO 11:58 → LDR 12:57 → OB 07-06 12:40
PROVIDERS: Obstetrics & Gynecology; ADMIT Obstetrics & Gynecology
PROC: 10E0XZZ Delivery of Products of Conception, External Approach (ICD-10-PCS; principal; 2021-07-05)
PROC: 10907ZC Drainage of Amniotic Fluid, Therapeutic from Products of Conception, Via Natural or Artificial Opening (ICD-10-PCS; 2021-07-05)
DX: O11.4 Pre-existing hypertension with pre-eclampsia, complicating childbirth (principal); Z37.0 Single live birth; O99.03 Anemia complicating the puerperium; D50.9 Iron deficiency anemia, unspecified; O10.913 Unspecified pre-existing hypertension complicating pregnancy, third trimester; O99.824 Streptococcus B carrier state complicating childbirth; O77.0 Labor and delivery complicated by meconium in amniotic fluid; O99.344 Other mental disorders complicating childbirth; F31.9 Bipolar disorder, unspecified; Z3A.39 39 weeks gestation of pregnancy
CPT/HCPCS: J2540; J2590; J3475; J7120

== ENCOUNTER 2023-12-25 22:26 | Emergency (ER) | payer MEDICAID ==
[~2023-12-25] VITALS: Ht 162.6 cm; Wt 90.9 kg
[~2023-12-25 22:26] MED LIST changes: +IBU800 M1 PO; +MOTRIN 800800 MG/TAB PO; +PROCARDIA XL 6060 MG PO; +TYLENOL 500MG500 MG PO
[2023-12-25 23:29] LABS: COLLECTION METHOD CLEAN CATCH
[2023-12-25 23:40] LABS: URINE APPEARANCE Hazy (CLEAR/HAZY); URINE COLOR Yellow (YELLOW); URINE GLUCOSE Negative (NEGATIVE); URINE PROTEIN(semi-quant) 2+ (NEGATIVE)
[2023-12-25 23:41] LABS: URINE BLOOD 2+ (NEGATIVE); URINE KETONE Negative (NEGATIVE); URINE NITRATE Negative (NEGATIVE); URINE UROBILINOGEN 0.2 E.U/dL (0.2-1.0)
[2023-12-25] MEDS ORDERED: LORazepam 0.5 MG TAB PO ONE (23:45)
[2023-12-25 23:53] LABS: TRICYCLIC ANTIDEPRESS URINE NEGATIVE (NEGATIVE)
[2023-12-26 00:01] LABS: BASO % 0.5 % (0.0-2.0); EOS # 0.1 K/mm3 (0.0-0.7); EOS % 1.3 % (0.0-4.0); GRAN # 5.8 K/mm3 (1.4-6.5); GRAN % 65.6 % (42.2-75.2); HEMATOCRIT 38.4 % (37.0-47.0); HEMOGLOBIN 12.7 g/dl (12.5-16.0); LYMPH # 2.4 K/mm3 (1.2-3.4); LYMPH % 26.8 % (20.0-51.0); MEAN CELL VOLUME 84 fl (80.0-100.0); MEAN CORPUSCULAR HEMOGLOBIN 28 pg (27-31); MEAN CORPUSCULAR HGB CONC 33 g/dl (33.0-37.0); MEAN PLATELET VOLUME 8.9 fl (7.4-10.4); MONO # 0.5 K/mm3 (0.1-0.6); MONO % 5.5 % (1.7-9.3); PLATELET COUNT 343 K/mm3 (130-400); RED BLOOD COUNT 4.58 M/mm3 (4.10-5.30)
[2023-12-26 00:15] LABS: ALANINE AMINOTRANSFERASE 18 U/L (0-55); ALBUMIN 3.9 g/dL (3.5-5.0); ALCOHOL(ethanol),MEDICAL 176 mg/dL (0-10); ALKALINE PHOSPHATASE 88 U/L (40-150); ANION GAP 15 mmol/L (7-16); AST,SGOT 20 U/L (5-34); BILIRUBIN,TOTAL 0.6 mg/dL (0.2-1.2); BLOOD UREA NITROGEN 10 mg/dL (7-19); CALCIUM 9.7 mg/dL (8.4-10.2); CHLORIDE 110 mEq/L (98-107); CREATININE, serum 1.18 mg/dL (0.57-1.11); GLUCOSE 103 mg/dL (70-99); POTASSIUM 3.7 mEq/L (3.5-4.5); SODIUM 142 mEq/L (136-145); TOTAL PROTEIN 8.4 g/dl (6.2-8.1)
[2023-12-26 00:18] LABS: SALICYLATE < 5.0 mg/dL (15.0-30.0)
[2023-12-26] MEDS ORDERED: Nicotine 21 MG DAILY PATCH TD SCH (12:55)
[2023-12-26 16:48] VITALS: BP 140/90; PULSE 82; TEMP 98.5
== END 2023-12-26 16:50 ==
LOC: COL.ER 22:26
PROVIDERS: Emergency Medicine
DX: F31.9 Bipolar disorder, unspecified (principal); F17.290 Nicotine dependence, other tobacco product, uncomplicated